=== PATIENT | female | born 1995 | race Caucasian/White ===

== ENCOUNTER 2022-04-05 19:33 | Emergency (ER) | payer SELFPAY ==
[~2022-04-05] VITALS: Ht 167.6 cm; Wt 81.2 kg
--- NOTE | 2022-04-05 19:35 | NUR ---
PT DIANE [facility] 89, TAKEN TO ER BED 6
[2022-04-05 19:36] VITALS: BP 128/78
--- NOTE | 2022-04-05 19:48 | NUR ---
PT UP AND AMBULATES TO RESTROOM WITH STEADY GAIT.
--- NOTE | 2022-04-05 20:00 | NUR ---
Patient being evaluated by physician at bedside.
[2022-04-05 20:52] LABS: BASOPHILS % (AUTO) 0.4 % (0.0-2.0); EOSINOPHILS # (AUTO) 0.5 K/uL (0-0.4); EOSINOPHILS % (AUTO) 5.2 % (0.0-4.0); HEMATOCRIT 35.8 % (36-48); LYMPHOCYTES # (AUTO) 2.9 K/uL (2.5-16.5); LYMPHOCYTES % (AUTO) 27.2 % (20.5-51.1); MEAN CORPUSCULAR HEMOGLOBIN 28 pg (27-31); MEAN CORPUSCULAR HGB CONC 34 g/dL (33-37); MEAN CORPUSCULAR VOLUME 83.9 fL (80-94); MONOCYTES # (AUTO) 0.7 K/uL (0.8-1.0); MONOCYTES % (AUTO) 6.8 % (1.7-9.3); NEUTROPHILS # (AUTO) 6.4 K/uL (1.8-7.7); NEUTROPHILS % (AUTO) 60.4 % (42.2-75.2); PLATELET COUNT (AUTO) 241 K/uL (140-450); RED BLOOD CELL COUNT(AUTO) 4.27 MIL/uL (4.20-5.40); RED CELL DISTRIBUTION WIDTH 13.6 % (11.6-13.7); WHITE BLOOD COUNT (AUTO) 10.6 K/uL (4.8-10.8)
--- NOTE | 2022-04-05 21:25 | NUR ---
[id number] PT A/OX4. VS HAVE BEEN STABLE. IV I/P. PT HAS BEEN RECEIVING ER/MED EVAL AND TX. PT DENIES ANY S/S OF PAIN. PREG. TEST IS NEG. CXR DONE. PT IS SPAN-SPKG AND VERB VIA PSYCHIATRY ADULT PHYSICIAN THAT SHE HAS TO LEAVE BECAUSE SHE HAS A FLIGHT IN TO CATCH IN THE MORNING. ER MD INFORMED. PT SIGNED OUT AMA VIA SPAN. IV D/CD. PT DENIES ANY DIZZINESS OR DISCOMFORT. PT AMB WITH STABLE GAIT. RISHI RODNEY
--- NOTE | 2022-04-05 21:25 | NUR ---
PT WANTING TO LEAVE. DR. LUCERO AT BEDSIDE TO DISCUSS RISKS TO SIGNING AMA, UP TO AND INCLUDING . PT A&OX4, GCS 15. PT STATES SHE HAS A PLANE TO CATCH. PT SIGNS AMA FORM AT THIS TIME.
--- NOTE | 2022-04-05 21:25 | NUR ---
Patient does not wish to proceed with medical care recommended by DR. LUCERO. Patient given information related to possible complications, up to and including , which could occur as a result of leaving hospital at this time. Patient verbalizes understanding of risks involved leaving against medical advice. Patient has signed AMA form.
[2022-04-05 21:35] LABS: ALBUMIN 4.1 g/dL (3.4-5.0); ANION GAP 13.5 (8-16); ASPARTATE AMINOTRANSFERASE 24 U/L (15-37); CARBON DIOXIDE 27.1 mmol/L (21-32); CHLORIDE 102 mmol/L (98-107); CREATININE 0.7 mg/dL (0.6-1.3); GFR ARICAN-AMERICAN 128 mL/min (>90); GLUCOSE 123 mg/dL (74-106); POTASSIUM 3.6 mmol/L (3.5-5.1); SODIUM SERUM 139 mmol/L (136-145); UREA NITROGEN, BLOOD 12 mg/dL (7-18)
== END 2022-04-05 21:25 | disposition left against medical advice (07) ==
LOC: MED 19:33
DX: R55 Syncope and collapse (principal); R06.00 Dyspnea, unspecified; I25.2 Old myocardial infarction; Z90.49 Acquired absence of other specified parts of digestive tract
CPT/HCPCS: 36415; 71045; 80053; 81025; 84484; 85025; 99285; Q0092